=== PATIENT | male | born 1945 | race Caucasian/White ===

== ENCOUNTER → 2020-10-08 | Day surgery (SDC) | payer MEDICARE, OTHER ==
[~2020-10-08] MED LIST: BUMETANIDE2 MG PO; CARVEDILOL6.25 MG PO; COLACE100 MG PO; DIGOXIN125 MCG PO; HUMULIN N100 UNIT/3 SC; HUMULIN R100 UNIT/2 SC; LEVOTHYROXINE200 MC1 PO; METFORMIN HCL1000 MG PO; NITROGLYCERIN0.4 MG SL; POTASSIUM CHLO20 ME1 PO; PRESERVISION A1 EACH PO; RANOLAZINE ER500 MG PO; TYLENOL ARTHRI650 MG PO
[2020-10-08 07:41] LABS: INR 1.1 (0.9-1.2); PROTHROMBIN TIME 13.5 SECONDS (11.4-13.6)
[2020-10-08 07:42] LABS: PTT 32.6 SECONDS (22.2-34.7)
== END | disposition home or self-care (01) ==
LOC: FAS 06:35
PROVIDERS: Surgery Surgical Oncology
DX: D64.9 Anemia, unspecified (principal); K57.30 Diverticulosis of large intestine without perforation or abscess without bleeding; K64.8 Other hemorrhoids; K29.70 Gastritis, unspecified, without bleeding; I25.119 Atherosclerotic heart disease of native coronary artery with unspecified angina pectoris; I27.21 Secondary pulmonary arterial hypertension; I25.9 Chronic ischemic heart disease, unspecified; I11.0 Hypertensive heart disease with heart failure; I50.9 Heart failure, unspecified; E11.9 Type 2 diabetes mellitus without complications; E78.00 Pure hypercholesterolemia, unspecified; Z95.1 Presence of aortocoronary bypass graft; Z95.5 Presence of coronary angioplasty implant and graft; Z88.6 Allergy status to analgesic agent; Z87.891 Personal history of nicotine dependence; Z79.01 Long term (current) use of anticoagulants
CPT/HCPCS: 36415; 82962; 85610; 85730; 88305; J2250; J2704; J7120